=== PATIENT | male | born 1990 | race Caucasian/White ===

== ENCOUNTER 2020-01-03 03:21 | Emergency (ER) | payer SELFPAY ==
[~2020-01-03] VITALS: Ht 193 cm; Wt 106.0 kg
[~2020-01-03 03:21] MED LIST: ASPI-496 PO; ASPI-650 PO; DILT180C53 PO; DILT60CA PO; MULT-658 PO; OXYC-432 PO; ZOLP-413 PO
[2020-01-03 04:39] VITALS: BP 149/96
--- NOTE | 2020-01-03 04:39 | NUR ---
PT UP TO RESTROOM, STATES HE FEELS BETTER. VSS.
--- NOTE | 2020-01-03 05:17 | NUR ---
REFUSING LAB DRAW DUE TO NOT HAVING HEALTH INSURANCE. UPDATED ERP.
== END 2020-01-03 05:36 | disposition home or self-care (01) ==
LOC: ED 04:36
DX: R07.89 Other chest pain (principal); R00.0 Tachycardia, unspecified; F14.129 Cocaine abuse with intoxication, unspecified; Z95.0 Presence of cardiac pacemaker
CPT/HCPCS: 93005; 99283